=== PATIENT | female | born 1940 | race Caucasian/White ===

== ENCOUNTER 2024-08-22 14:14 | Inpatient (IN) | payer MEDICARE, BC ==
[~2024-08-22] VITALS: Ht 167.6 cm; Wt 56.2 kg
[2024-08-22] MEDS ORDERED: SACU1TAB PO (14:34)
[2024-08-22] MEDS ORDERED: NA P133E RC (14:34)
[2024-08-22] MEDS ORDERED: METO-356 PO (14:34)
[2024-08-22] MEDS ORDERED: ATOR40TA PO (14:34)
[2024-08-22] MEDS ORDERED: ACET325T53 PO (14:34)
[2024-08-22] MEDS ORDERED: POLY17PO4 PO (14:34)
[2024-08-22] MEDS ORDERED: APIX2.5T PO (14:34)
[2024-08-22] MEDS ORDERED: MAGN400O6 PO (14:34)
[2024-08-22] MEDS ORDERED: BISA10SU61 RC (14:34)
[2024-08-22 14:57] LABS: BASOPHILS % (AUTO) 0.5 % (0.0-2.0); EOSINOPHILS % (AUTO) 0.4 % (0.0-7.0); HEMATOCRIT 36.2 % (31.2-41.9); LYMPHOCYTES # (AUTO) 0.9 K/uL (0.8-4.8); MEAN CORPUSCULAR HEMOGLOBIN 30.2 uug (24.7-32.8); MEAN CORPUSCULAR HGB CONC 33 g/dL (32.3-35.6); MEAN CORPUSCULAR VOLUME 91.2 fL (75.5-95.3); MONOCYTES # (AUTO) 0.4 K/uL (0.1-1.30); MONOCYTES % (AUTO) 5.2 % (0.0-11.0); NEUTROPHILS # (AUTO) 5.9 K/uL (1.8-8.9); NEUTROPHILS % (AUTO) 81.9 % (38.5-71.5); PLATELET COUNT (AUTO) 178 K/uL (179-408); RED BLOOD CELL COUNT(AUTO) 3.97 MIL/uL (3.63-4.92); RED CELL DISTRIBUTION WIDTH 13.9 % (12.3-17.7); WHITE BLOOD COUNT (AUTO) 7.1 K/uL (3.8-11.8)
[2024-08-22 15:00] LABS: DIFFERENTIAL COMMENT 1
[2024-08-22 15:05] LABS: CALCIUM 8.5 mg/dL (8.5-10.1); CARBON DIOXIDE 28 mmol/L (21-32); CHLORIDE 105 mmol/L (98-107); CREATININE 0.9 mg/dL (0.6-1.3); GLUCOSE 99 mg/dL (74-106); POTASSIUM 4.4 mmol/L (3.5-5.1); SODIUM SERUM 141 mmol/L (136-145); UREA NITROGEN, BLOOD 22 mg/dL (7-18)
[2024-08-22 15:06] LABS: AMMONIA 36 umol/L (11-32)
[2024-08-22 15:19] LABS: ACETAMINOPHEN < 2.0 ug/mL (10-30); ALANINE AMINOTRANSFERASE 10 U/L (14-59); ALBUMIN 3.3 g/dL (3.4-5.0); ALKALINE PHOSPHATASE 67 U/L (50-136); ASPARTATE AMINOTRANSFERASE 13 U/L (15-37); BILIRUBIN,DIRECT 0.3 mg/dL (0.0-0.2); BILIRUBIN,TOTAL 0.8 mg/dL (0.2-1.0); ETHANOL < 3 MG/DL (0-10); TOTAL PROTEIN, SERUM 6.2 g/dL (6.4-8.2)
[2024-08-22 15:25] LABS: *BILIRUBIN,URIN NEGATIVE (NEGATIVE); *BLOOD, URINE NEGATIVE (NEGATIVE); *CLARITY,URINE CLEAR (CLEAR); *COLOR,URINE YELLOW (YELLOW); *KETONES,URINE NEGATIVE (NEGATIVE); *PROTEIN,URINE NEGATIVE (NEGATIVE); LEUKOCYTE ESTERASE ,URINE NEGATIVE (NEGATIVE); NITRITE, URINE NEGATIVE (NEGATIVE); UGLUCOSE NEGATIVE (NEGATIVE)
[2024-08-22 15:36] LABS: *AMPHETAMINE, URINE NEGATIVE (NEGATIVE); *BARBITURATE, URINE NEGATIVE (NEGATIVE); *BENZODIAZEPINE, URINE NEGATIVE (NEGATIVE); *CANNABINOID, URINE NEGATIVE (NEGATIVE); *COCCAINE, URINE NEGATIVE (NEGATIVE); *OPIATE, URINE NEGATIVE (NEGATIVE); *PHENCYCLIDINE SCREEN,URINE NEGATIVE (NEGATIVE); FENTANYL, URINE NEGATIVE (NEGATIVE)
[2024-08-22 15:38] LABS: BACTERIA,URINE NONE SEEN /HPF (NONE SEEN); RBC,URINE NONE SEEN /HPF (0-3); SQUAMOUS EPITHELIAL CELL,UR FEW /HPF (NONE SEEN); WBC,URINE 0-3 /HPF (0-3)
[2024-08-22 18:40] VITALS: BP 103/56; TEMP 98.7; O2SAT 98
[2024-08-22] MEDS ORDERED: MAG HYDROX/AL HYDROX/SIMETH 30 ML LIQUID UDC PO PRN (19:30)
[2024-08-22] MEDS ORDERED: MAGNESIUM HYDROXIDE 30 ML LIQUID UDC PO PRN ×2 (19:30→20:00)
[2024-08-22] MEDS ORDERED: ACETAMINOPHEN 325 MG TABLET PO PRN (19:30)
[2024-08-22] MEDS: LORAZEPAM 1 MG TABLET PO PRN (19:59)
[2024-08-22] MEDS ORDERED: FLEET ENEMA 133 ML BOTTLE RC PRN (20:00)
[2024-08-22] MEDS ORDERED: ACETAMINOPHEN 325 MG TABLET-SA PATIENTS-PAIN ONLY PO PRN (20:00)
[2024-08-22] MEDS ORDERED: MIRALAX 17 GM POWD.PACK PO PRN (20:00)
[2024-08-22 20:23] VITALS: BP 131/74; TEMP 98; O2SAT 98
[2024-08-22] MEDS: OLANZAPINE 10 MG VIAL IM ONE (21:44)
[2024-08-22] MEDS: TEMAZEPAM 7.5 MG CAPSULE PO PRN (23:34)
[2024-08-23 07:13] LABS: BASOPHILS % (AUTO) 0.7 % (0.0-2.0); EOSINOPHILS # (AUTO) 0.1 K/uL (0.0-0.7); EOSINOPHILS % (AUTO) 2.5 % (0.0-7.0); HEMOGLOBIN 12.6 g/dL (10.9-14.3); LYMPHOCYTES # (AUTO) 1.4 K/uL (0.8-4.8); LYMPHOCYTES % (AUTO) 23.9 % (20.5-51.5); MEAN CORPUSCULAR HEMOGLOBIN 30.9 uug (24.7-32.8); MEAN CORPUSCULAR HGB CONC 33 g/dL (32.3-35.6); MEAN CORPUSCULAR VOLUME 93.3 fL (75.5-95.3); MONOCYTES # (AUTO) 0.5 K/uL (0.1-1.30); MONOCYTES % (AUTO) 9.3 % (0.0-11.0); NEUTROPHILS # (AUTO) 3.7 K/uL (1.8-8.9); NEUTROPHILS % (AUTO) 63.6 % (38.5-71.5); PLATELET COUNT (AUTO) 152 K/uL (179-408); RED BLOOD CELL COUNT(AUTO) 4.08 MIL/uL (3.63-4.92); RED CELL DISTRIBUTION WIDTH 14.2 % (12.3-17.7); WHITE BLOOD COUNT (AUTO) 5.8 K/uL (3.8-11.8)
[2024-08-23 07:19] LABS: DIFFERENTIAL COMMENT 1
[2024-08-23 07:22] LABS: CALCIUM 8.6 mg/dL (8.5-10.1); CARBON DIOXIDE 27 mmol/L (21-32); CHLORIDE 109 mmol/L (98-107); CREATININE 0.8 mg/dL (0.6-1.3); GLUCOSE 77 mg/dL (74-106); POTASSIUM 3.7 mmol/L (3.5-5.1); SODIUM SERUM 143 mmol/L (136-145); UREA NITROGEN, BLOOD 19 mg/dL (7-18)
[2024-08-23] MEDS: METOPROLOL SUCCINATE XL 25 MG TAB.SR.24H PO SCH (08:59)
[2024-08-23] MEDS: SACUBITRIL/VALSARTAN 24 MG-26 TABLET PO SCH (08:59)
[2024-08-23] MEDS ORDERED: BISACODYL 10 MG SUPP.RECT RC PRN (09:00)
[2024-08-23] MEDS: APIXABAN 2.5 MG TABLET PO SCH (09:01)
[2024-08-23 09:02] VITALS: BP 128/62; TEMP 98.3; O2SAT 98
[2024-08-23 16:34] VITALS: BP 121/64; TEMP 98.1; O2SAT 98
[2024-08-23 20:10] VITALS: BP 113/68; TEMP 97.9; O2SAT 98
[2024-08-23] MEDS: ATORVASTATIN 40 MG TABLET PO SCH (20:50)
[2024-08-23] MEDS ORDERED: MUPIROCIN 2% OINT 22 GM TUBE NS SCH (21:00)
[2024-08-23] MEDS: GABAPENTIN 100 MG CAPSULE PO SCH (21:43)
[2024-08-24 08:08] VITALS: BP 110/66; TEMP 97.8; O2SAT 99
[2024-08-24 08:38] VITALS: BP 110/66; TEMP 97.8; O2SAT 99
[2024-08-24 16:19] VITALS: BP 95/59; TEMP 98.2; O2SAT 97
[2024-08-24 20:18] VITALS: BP 111/64; TEMP 98.1; O2SAT 98
[2024-08-24] MEDS: TEMAZEPAM 7.5 MG CAPSULE PO PRN (22:04)
[2024-08-25 07:37] VITALS: BP 109/73; TEMP 98; O2SAT 98
[2024-08-25 15:42] VITALS: BP 112/67; TEMP 97.6; O2SAT 96
[2024-08-25 20:16] VITALS: BP 110/70; TEMP 97.9; O2SAT 96
[2024-08-26 08:31] VITALS: BP 95/66; TEMP 98; O2SAT 98
[2024-08-26 15:33] VITALS: BP 96/63; TEMP 98; O2SAT 98
[2024-08-26 20:00] VITALS: BP 103/69; TEMP 97.8; O2SAT 95
[2024-08-26] MEDS ORDERED: GABAPENTIN 100 MG CAPSULE PO SCH (21:00)
[2024-08-27 08:49] VITALS: BP 116/63; TEMP 98; O2SAT 99
[2024-08-27] MEDS: MUPIROCIN 2% OINT 22 GM TUBE NS SCH (09:47)
[2024-08-27 15:54] VITALS: BP 94/51; TEMP 98; O2SAT 99
[2024-08-27 20:00] VITALS: BP 93/53; TEMP 97.7; O2SAT 95
[2024-08-28 07:52] VITALS: BP 117/63; TEMP 98; O2SAT 98
[2024-08-28 15:47] VITALS: BP 102/65; TEMP 98; O2SAT 98
[2024-08-28 20:00] VITALS: BP 101/65; TEMP 97.5; O2SAT 97
[2024-08-29 07:55] LABS: BASOPHILS # (AUTO) 0.3 K/UL (0.0-0.2); BASOPHILS % (AUTO) 4.6 % (0.0-2.0); EOSINOPHILS # (AUTO) 0.3 K/uL (0.0-0.7); EOSINOPHILS % (AUTO) 5.6 % (0.0-7.0); LYMPHOCYTES # (AUTO) 0.6 K/uL (0.8-4.8); LYMPHOCYTES % (AUTO) 11.1 % (20.5-51.5); MEAN CORPUSCULAR HEMOGLOBIN 30.5 uug (24.7-32.8); MEAN CORPUSCULAR HGB CONC 33 g/dL (32.3-35.6); MEAN CORPUSCULAR VOLUME 91.4 fL (75.5-95.3); MONOCYTES # (AUTO) 0.4 K/uL (0.1-1.30); MONOCYTES % (AUTO) 6.4 % (0.0-11.0); NEUTROPHILS # (AUTO) 4.2 K/uL (1.8-8.9); NEUTROPHILS % (AUTO) 72.3 % (38.5-71.5); PLATELET COUNT (AUTO) 161 K/uL (179-408); RED BLOOD CELL COUNT(AUTO) 4.26 MIL/uL (3.63-4.92); RED CELL DISTRIBUTION WIDTH 14.1 % (12.3-17.7); WHITE BLOOD COUNT (AUTO) 5.8 K/uL (3.8-11.8)
[2024-08-29 08:08] LABS: DIFFERENTIAL COMMENT 1
[2024-08-29 08:19] VITALS: BP 104/65; TEMP 98.4; O2SAT 98
[2024-08-29 09:17] LABS: LYMPHOCYTES % (MANUAL) 26 % (20-40); NEUTROPHILS % (MANUAL) 60 % (42-75)
[2024-08-29 09:18] LABS: EOSINOPHILS % (MANUAL) 2 % (0-8); MONOCYTES % (MANUAL) 12 % (2-10); PLATELET ESTIMATE DECREASED
[2024-08-29 16:51] VITALS: BP 108/64; TEMP 98.1; O2SAT 98
[2024-08-29 20:00] VITALS: BP 91/48; TEMP 98; O2SAT 97
[2024-08-30] MEDS: DIVALPROEX 125 MG TABLET.DR PO SCH (08:18)
[2024-08-30 08:34] VITALS: BP 96/57; TEMP 97.8; O2SAT 98
[2024-08-30] MEDS: DIVALPROEX 250 MG TABLET.DR PO SCH (12:21)
[2024-08-30] MEDS: GABAPENTIN 100 MG CAPSULE PO SCH (16:27)
[2024-08-30 16:58] VITALS: BP 110/56; TEMP 97.9; O2SAT 98
[2024-08-30 19:58] VITALS: BP 111/58; TEMP 97.8; O2SAT 96
[2024-08-31 07:53] VITALS: BP 100/63; TEMP 98.2; O2SAT 98
[2024-08-31 16:38] VITALS: BP 92/54; TEMP 98; O2SAT 98
[2024-08-31 20:06] VITALS: BP 101/60; TEMP 98.1; O2SAT 96
[2024-08-31] MEDS: LORAZEPAM 1 MG TABLET PO PRN (22:40)
[2024-09-01 07:50] VITALS: BP 121/74; TEMP 98; O2SAT 99
[2024-09-01] MEDS: GABAPENTIN 100 MG CAPSULE PO SCH (08:34)
[2024-09-01 15:54] VITALS: BP 98/55; TEMP 98; O2SAT 98
[2024-09-01 19:52] VITALS: BP 105/60; TEMP 98.1; O2SAT 98
[2024-09-02 07:30] VITALS: BP 122/61; TEMP 98; O2SAT 100
[2024-09-02 15:31] VITALS: BP 123/55; TEMP 98; O2SAT 96
[2024-09-02 20:00] VITALS: BP 100/56; TEMP 97.4; O2SAT 98
[2024-09-03 08:00] VITALS: BP 109/62; TEMP 98; O2SAT 98
[2024-09-03 16:04] VITALS: BP 105/63; TEMP 98; O2SAT 98
[2024-09-04 08:06] VITALS: BP 117/64; TEMP 98; O2SAT 98
[2024-09-04 15:21] VITALS: BP 98/52; TEMP 98; O2SAT 96
[2024-09-04 20:00] VITALS: BP 99/69; TEMP 97.6; O2SAT 97
[2024-09-05 07:55] VITALS: BP 128/68; TEMP 98.2; O2SAT 98
[2024-09-05 16:14] VITALS: BP 96/54; TEMP 98; O2SAT 97
[2024-09-05 20:00] VITALS: BP 106/70; TEMP 98; O2SAT 95
[2024-09-06 07:35] LABS: BASOPHILS # (AUTO) 0.1 K/UL (0.0-0.2); BASOPHILS % (AUTO) 1.5 % (0.0-2.0); EOSINOPHILS # (AUTO) 0.6 K/uL (0.0-0.7); EOSINOPHILS % (AUTO) 8.9 % (0.0-7.0); HEMOGLOBIN 14.4 g/dL (10.9-14.3); LYMPHOCYTES # (AUTO) 1.3 K/uL (0.8-4.8); LYMPHOCYTES % (AUTO) 18.8 % (20.5-51.5); MEAN CORPUSCULAR HEMOGLOBIN 30.4 uug (24.7-32.8); MEAN CORPUSCULAR HGB CONC 33 g/dL (32.3-35.6); MEAN CORPUSCULAR VOLUME 90.9 fL (75.5-95.3); MONOCYTES # (AUTO) 0.5 K/uL (0.1-1.30); MONOCYTES % (AUTO) 7.6 % (0.0-11.0); NEUTROPHILS # (AUTO) 4.5 K/uL (1.8-8.9); NEUTROPHILS % (AUTO) 63.2 % (38.5-71.5); PLATELET COUNT (AUTO) 181 K/uL (179-408); RED BLOOD CELL COUNT(AUTO) 4.73 MIL/uL (3.63-4.92); RED CELL DISTRIBUTION WIDTH 13.5 % (12.3-17.7); WHITE BLOOD COUNT (AUTO) 7.2 K/uL (3.8-11.8)
[2024-09-06 07:50] LABS: CALCIUM 8.5 mg/dL (8.5-10.1); CARBON DIOXIDE 30 mmol/L (21-32); CHLORIDE 101 mmol/L (98-107); CREATININE 0.7 mg/dL (0.6-1.3); GLUCOSE 86 mg/dL (74-106); SODIUM SERUM 137 mmol/L (136-145); UREA NITROGEN, BLOOD 26 mg/dL (7-18); VALPROIC ACID 74 ug/mL (50-100)
[2024-09-06 07:56] LABS: DIFFERENTIAL COMMENT 1
[2024-09-06 08:22] VITALS: BP 97/54; TEMP 97.8; O2SAT 98
[2024-09-06 16:08] VITALS: BP 93/56; TEMP 98; O2SAT 98
[2024-09-06 20:00] VITALS: BP 107/63; TEMP 98; O2SAT 98
[2024-09-07 08:00] VITALS: BP 111/67; TEMP 98.1; O2SAT 97
[2024-09-07 08:19] VITALS: BP 111/67
== END 2024-09-07 14:00 | DRG 885 ==
LOC: ER 14:16 → GPS 17:47
PROVIDERS: ADMIT Psychiatry & Neurology Psychosomatic Medicine; ATTEND Nurse Practitioner Acute Care
DX: F39 Unspecified mood [affective] disorder (principal); I11.0 Hypertensive heart disease with heart failure; F03.911 Unspecified dementia, unspecified severity, with agitation; D68.59 Other primary thrombophilia; F03.918 Unspecified dementia, unspecified severity, with other behavioral disturbance; I48.20 Chronic atrial fibrillation, unspecified; I50.42 Chronic combined systolic (congestive) and diastolic (congestive) heart failure; Z91.199 Patient's noncompliance with other medical treatment and regimen due to unspecified reason; G90.89 Other disorders of autonomic nervous system; K59.09 Other constipation; E78.5 Hyperlipidemia, unspecified; Z79.01 Long term (current) use of anticoagulants; Z86.73 Personal history of transient ischemic attack (TIA), and cerebral infarction without residual deficits; Z87.440 Personal history of urinary (tract) infections; I67.2 Cerebral atherosclerosis; R35.0 Frequency of micturition; Z22.322 Carrier or suspected carrier of Methicillin resistant Staphylococcus aureus
CPT/HCPCS: 36415; 70030-TC; 70450; 71045; 80164; 84484; 85025; 85730; 93005; A6209; G0480; J2358; J3490